=== PATIENT | female | born 1955 | race Caucasian/White ===

== ENCOUNTER 2020-02-09 12:28 | Emergency (ER) | payer OTHER, SELFPAY ==
[2020-02-09 12:38] VITALS: BP 149/84; PULSE 72; RESP 16; TEMP 36.7; O2SAT 97
--- NOTE | 2020-02-09 12:42 | ED.EAR ---
HPI - Ear Problem General Stated complaint: Abdominal Pain Time Seen by Provider: 02/09/20 12:35 Source: patient and RN notes reviewed Mode of arrival: ambulatory Limitations: no limitations History of Present Illness HPI Narrative: Patient presents today complaining of pain to the right ear since yesterday with intermittent spells of dizziness. These spells of dizziness only come on with pronounced movements of the head such as when doing a burpee in the gym and bending over. Denies drainage or decreased hearing. Denies congestion, rhinorrhea, postnasal drip, sore throat, cough, fever. Describes some discomfort at this time that she currently rates 3/10. She takes Claritin daily, but has tried no other [id number] medication for her symptoms. Related Data Allergies Allergy/AdvReac Type Severity Reaction Status Date / Time Sulfa (Sulfonamide Allergy Severe Verified 10/06/16 17:33 Antibiotics) iodine Allergy Mild HIVES Verified 10/06/16 17:33 metronidazole Allergy Unknown Verified 10/06/16 17:33 mold Allergy Unknown Verified 10/06/16 17:33 levofloxacin AdvReac Severe TENDON Verified 10/06/16 17:33 PAIN, DAMAGE prednisone AdvReac Mild HX OF Verified 10/06/16 17:33 CENTRAL RETINOPATHY ciprofloxacin AdvReac Unknown TENDON Verified 10/06/16 17:33 DAMAGE, PAIN Contrast Media Allergy Unknown HIVES Uncoded 10/06/16 17:33 METRONIDAZOLE HCL Allergy Unknown Uncoded 10/06/16 17:33 CIPROFLOXACIN HCL AdvReac Severe TENDON Uncoded 10/06/16 17:33 DAMAGE, PAIN Review of Systems Review of Systems: Narrative: CONSTITUTIONAL: Denies body aches, fever, chills, or sweats. EYES: Denies visual changes, redness, or discharge. ENT: Denies rhinorrhea, congestion, sore throat. + Right ear pain CARDIOVASCULAR: Denies chest pain, palpitations, or edema. RESPIRATORY: Denies cough or dyspnea. GASTROINTESTINAL: Denies abdominal pain, nausea, vomiting, or diarrhea. GENITOURINARY: Denies dysuria or hematuria. SKIN: Denies rash, itching, or wounds. MUSCULOSKELETAL: Denies back pain, joint pain, or myalgia. NEUROLOGIC: Denies headache, numbness, tingling, or weakness. PSYCH: Denies depression or anxiety. [facility] Past Medical History Medical History (Updated 02/09/20 @ 12:48 by Jennifer Dasilva, [facility], ) Anxiety Diabetes Hyperlipidemia Comments At time of signature, I have reviewed and agree with nursing past medical, surgical, social and family history unless otherwise noted. Please see nursing chart for further information. There is no relevant family history pertinent to the presenting complaint Exam Narrative: Exam Narrative: GENERAL: Well-appearing, well-nourished, and in no acute distress. HEAD: Normocephalic, atraumatic. EYES: EOMI. No redness or drainage. Conjunctivae normal. ENT: Mucous membranes pink and moist. Nares clear. No rhinorrhea. Bilateral middle ear effusions, right greater than left. TMs without erythema or injection. No movement tenderness of the external ears bilaterally. NECK: Normal AROM. Supple. No lymphadenopathy. CHEST: No respiratory distress. EXTREMITIES: Normal range of motion. No edema. SKIN: Warm, dry, no rash. Capillary refill normal. Normal skin turgor. NEURO: No focal deficits. Alert and oriented x3. Gait steady. PSYCH: Normal affect. No signs of depression or anxiety. Course Vital Signs Vital signs: Vital Signs Temperature 98.0 F 02/09/20 12:38 Pulse Rate 72 02/09/20 12:38 Respiratory Rate 16 02/09/20 12:38 Blood Pressure 149/84 H 02/09/20 12:38 Pulse Oximetry 97 02/09/20 12:38 Temperature 98.0 F 02/09/20 12:38 Pulse Rate 72 02/09/20 12:38 Respiratory Rate 16 02/09/20 12:38 Blood Pressure 149/84 H 02/09/20 12:38 Pulse Oximetry 97 02/09/20 12:38 Reviewed. Pt has been instructed to follow up with her PCP regarding her elevated blood pressure today. Medical Decision Making Differential Diagnosis Differe
--- NOTE | 2020-02-09 13:32 | ED.ABDPAIN ---
HPI - Abdominal Pain General Chief Complaint: Abdominal Pain Stated Complaint: Abdominal Pain Time Seen by Provider: 02/09/20 12:59 Source: patient and RN notes reviewed Mode of arrival: ambulatory Limitations: no limitations History of Present Illness HPI narrative: Patient presents today complaining of a 1 week history of lower abdominal pain and cramping, severe nausea, chills, fatigue. States, I feel like I am sitting on an apple. States she is also constipated for the past 3 days. Reports history of C. difficile, diverticulitis, rectocele. Reports that her stool is caught in her rectocele. She has been trying to dislodge it without success. She was seen at a hospital in [place] 1 week ago for not feeling well , diagnosed with pneumonia and placed on doxycycline, which she has been taking. States that she went and purchased an enema today, but read the instructions and it stated that she needed to consult a medical professional if she was over 55 or experiencing abdominal pain prior to using it. MD elicited complaint: abdominal pain Related Data Home Medications Medication Instructions Recorded Confirmed doxycycline monohydrate 100 mg PO DAILY 02/09/20 02/09/20 Allergies Allergy/AdvReac Type Severity Reaction Status Date / Time Sulfa (Sulfonamide Allergy Severe Hives Verified 02/09/20 12:51 Antibiotics) iodine Allergy Mild HIVES Verified 02/09/20 12:51 metronidazole Allergy Unknown Diarrhea Verified 02/09/20 12:51 mold Allergy Unknown Difficulty Verified 02/09/20 12:51 Breathing levofloxacin AdvReac Severe TENDON Verified 02/09/20 12:51 PAIN, DAMAGE prednisone AdvReac Mild HX OF Verified 02/09/20 12:51 CENTRAL RETINOPATHY ciprofloxacin AdvReac Unknown TENDON Verified 02/09/20 12:51 DAMAGE, PAIN Contrast Media Allergy Unknown HIVES Uncoded 02/09/20 12:51 METRONIDAZOLE HCL Allergy Unknown Hives Uncoded 02/09/20 12:51 CIPROFLOXACIN HCL AdvReac Severe TENDON Uncoded 02/09/20 12:51 DAMAGE, PAIN Review of Systems Review of Systems: Narrative: CONSTITUTIONAL: Denies body aches, fever, or sweats.+ Chills, fatigue EYES: Denies visual changes, redness, or discharge. ENT: Denies rhinorrhea, congestion, sore throat, or otalgia. CARDIOVASCULAR: Denies chest pain, palpitations, or edema. RESPIRATORY: Denies cough or dyspnea. GASTROINTESTINAL: Denies vomiting, or diarrhea.+ Abdominal pain, nausea, constipation GENITOURINARY: Denies dysuria or hematuria. SKIN: Denies rash, itching, or wounds. MUSCULOSKELETAL: Denies back pain, joint pain, or myalgia. NEUROLOGIC: Denies headache, numbness, tingling, or weakness. PSYCH: Denies depression or anxiety. [facility] Past Medical History Medical History (Updated 02/09/20 @ 13:37 by Jennifer Dasilva, [facility], ) Anxiety Diabetes Diverticulitis History of Clostridioides difficile colitis Hyperlipidemia Rectocele Comments At time of signature, I have reviewed and agree with nursing past medical, surgical, social and family history unless otherwise noted. Please see nursing chart for further information. There is no relevant family history pertinent to the presenting complaint Exam Narrative: Exam Narrative: GENERAL: Well-appearing, well-nourished, and in no acute distress. HEAD: Normocephalic, atraumatic. EYES: EOMI. No redness or drainage. Conjunctivae normal. ENT: Mucous membranes pink and moist. Nares clear. NECK: Normal AROM. Supple. No lymphadenopathy. CHEST: No respiratory distress. Clear to auscultation. HEART: Regular rate and rhythm. No murmur appreciated. Normal peripheral pulses. ABDOMEN: Soft, nondistended, normal active bowel sounds. + Tenderness to the lower abdomen MUSCULOSKELETAL: No bony tenderness. EXTREMITIES: Normal range of motion. No edema. SKIN: Warm, dry, no rash. Capillary refill normal. Normal skin turgor. NEURO: No focal deficits. Alert and oriented x3. Gait steady. PSYCH: Normal affect.
== END 2020-02-09 13:31 | disposition short-term general hospital (02) ==
PROVIDERS: Emergency Provider Nurse Practitioner
DX: R10.31 Right lower quadrant pain (principal); R10.32 Left lower quadrant pain; E78.5 Hyperlipidemia, unspecified; Z86.19 Personal history of other infectious and parasitic diseases; E11.9 Type 2 diabetes mellitus without complications
CPT/HCPCS: 99212; G0463

== ENCOUNTER 2022-03-13 13:19 | Emergency (ER) | payer OTHER, SELFPAY ==
--- NOTE | ~2022-03-13 | CT_ITS ---
EXAMINATION: CT abdomen pelvis wo con DATE: 03/13/2022 14:16 INDICATION: History of diverticulitis TECHNIQUE: Computed tomography (CT) of the abdomen and pelvis was performed without intravenous contr ast. The dose-length product was 1403.56 mGy-cm. Automated exposure control and iterative reconstruct ion technique were employed. COMPARISON: CT dated 07/24/2015. FINDINGS: Lung bases are unremarkable. Heart size is normal. No significant vascular abnormality. No lymphadenopathy. The spleen, pancreas, adrenal glands are unremarkable. Liver echotexture is normal without focal mass . Gallbladder is surgically absent. Small fat-containing umbilical hernia. There are changes of parti al left nephrectomy. There is a 11 mm hyperdense cyst of the left kidney laterally. There is a possib le additional 7 mm hyperdense cyst anteriorly. There are nonobstructing punctate 2 mm left renal ston es. There is a punctate nonobstructing right renal stone. There is a 1.5 cm exophytic right renal mas s laterally containing peripheral calcifications. This could represent a complicated cyst or solid ma ss. There is a 2.3 cm simple cyst of the right kidney. No ureteral stones or hydronephrosis. There ar e coarse calcifications of the left ovary unchanged, likely benign. Colonic diverticulosis without ev idence for diverticulitis. There is a 3 cm right ovarian cyst. Nonobstructive bowel pattern. No free air or free fluid. Small upper abdominal ventral hernia containing fat. Mild lumbar spondylosis. No f ocal lytic or blastic lesions. IMPRESSION: 1. No acute abdominal abnormality. No evidence for diverticulitis. 2: Right renal mass laterally measuring 1.5 cm which may represent a complicated cyst or renal cell c arcinoma. Recommend correlation with CT abdomen without and with contrast. Reviewed, dictated and finalized at location A. [employer] REPRESENTATIVE IMPRESSION: 1. No acute abdominal abnormality. No evidence for diverticulitis. 2: Right renal mass laterally measuring 1.5 cm which may represent a complicate d cyst or renal cell carcinoma. Recommend correlation with CT abdomen without a nd with contrast.
[2022-03-13 13:22] VITALS: BP 158/92; PULSE 63; RESP 16; TEMP 36.4; O2SAT 100
--- NOTE | 2022-03-13 13:47 | ED.ABDPAIN ---
HPI - Abdominal Pain General Chief Complaint: Abdominal Pain Stated Complaint: abd pain Time Seen by Provider: 03/13/22 13:47 Related Data Home Medications Medication Instructions Recorded Confirmed doxycycline monohydrate 100 mg 100 mg PO DAILY 02/09/20 02/09/20 tablet Allergies Allergy/AdvReac Type Severity Reaction Status Date / Time Sulfa (Sulfonamide Allergy Severe Hives Verified 03/13/22 14:59 Antibiotics) iodine Allergy Mild HIVES Verified 03/13/22 14:59 metronidazole Allergy Unknown Diarrhea, Verified 03/13/22 14:59 Hives mold Allergy Unknown Difficulty Verified 03/13/22 14:59 Breathing levofloxacin AdvReac Severe TENDON Verified 03/13/22 14:59 PAIN, DAMAGE prednisone AdvReac Mild HX OF Verified 03/13/22 14:59 CENTRAL RETINOPATHY ciprofloxacin AdvReac Unknown TENDON Verified 03/13/22 14:59 DAMAGE, PAIN Contrast Media Allergy Unknown HIVES Uncoded 03/13/22 14:59 PMFSH Past Medical History Medical History (Updated 03/13/22 @ 15:27 by Beth Sifuentes MD) Anxiety Diabetes Diverticulitis History of Clostridioides difficile colitis Hyperlipidemia Rectocele Course Course Emergency Course: Work-up today showed no significant finding to explain patient condition. IBS is my concern. Patient agreed with the result. Patient was notified about the 1.5 cm right renal mass and was advised to follow-up with her family physician within 7 days for further evaluation. She understood. And agreed. I did give her a copy of the CAT scan report as a reminder Vital Signs Vital signs: Vital Signs Temperature 36.4 C 03/13/22 13:22 Pulse Rate 63 03/13/22 13:22 Respiratory Rate 16 03/13/22 13:22 Blood Pressure 158/92 H 03/13/22 13:22 Pulse Oximetry 100 03/13/22 13:22 Oxygen Delivery Room Air 03/13/22 13:22 Temperature 36.4 C 03/13/22 13:22 Pulse Rate 63 03/13/22 13:22 Respiratory Rate 16 03/13/22 13:22 Blood Pressure 158/92 H 03/13/22 13:22 Pulse Oximetry 100 03/13/22 13:22 Oxygen Delivery Room Air 03/13/22 13:22 MDM - Abdominal Pain Imaging Data Radiologist's impression: Impressions Abdomen/Pelvis CT 03/13/22 14:19 IMPRESSION: 1. No acute abdominal abnormality. No evidence for diverticulitis. 2: Right renal mass laterally measuring 1.5 cm which may represent a complicated cyst or renal cell carcinoma. Recommend correlation with CT abdomen without and with contrast. Discharge Plan Discharge Clinical Impression: Abdominal pain, History of IBS, Kidney mass Patient Disposition: Home, Self-Care Condition: Stable Instructions: Irritable Bowel Syndrome (DC), Abdominal Pain (ED) Additional Instructions: Return if symptoms are worsening , call your family physician for appointment, take Tylenol as as needed for aches and pain, continue home medications. CAT scan of the abdomen and pelvis today showed that she have a 1.5 cm mass versus cyst on the right kidney which could be malignant. Please contact your family physician within 7 days for further evaluation. A copy of the CAT scan report is attached to your discharge paper. Prescriptions: New dicyclomine 20 mg tablet 20 mg PO QID Qty: 20 0RF No Action doxycycline monohydrate 100 mg tablet 100 mg PO DAILY Follow-up/Referrals: PHYSICIAN NOT ON STAFF,NONSTAFF [Primary Care Provider] - Bryon Mello MD [Physician] -
[2022-03-13 13:55] VITALS: BP 138/85; PULSE 66; RESP 18; O2SAT 100
[2022-03-13 13:57] LABS: Basophils Absolute Auto 0.1 K/mm3 (0.0-0.1); Basophils Percent Auto 0.8 % (0.2-1.2); Eosinophils Absolute Auto 0.2 K/mm3 (0-0.3); Eosinophils Percent Auto 3.5 % (0-4.4); Hematocrit 40.5 % (37.0-47.0); Hemoglobin 13.3 g/dL (12.0-15.0); Immature Granulocyte Absolute 0.01 K/mm3 (0.00-0.031); Immature Granulocyte Percent A 0.2 % (0-0.5); Lymphocytes Absolute Auto 1.58 K/mm3 (0.9-3.2); Lymphocytes Percent Auto 25.1 % (18.3-44.2); Mean Corpuscular HGB Conc 32.8 g/dl (32-36); Mean Corpuscular Hemoglobin 28.5 pg (26-34); Mean Corpuscular Volume 86.7 fl (80-100); Mean Platelet Volume 9.4 fl (7.4-10.4); Monocytes Absolute Auto 0.5 K/mm3 (0.1-0.6); Monocytes Percent Auto 7.5 % (2.6-8.5); Neutrophils Percent Auto 62.9 % (45.5-73.1); Platelet Count Result 186 k/mm3 (150-375); Red Blood Count 4.67 M/mm3 (4.2-5.4); Red Cell Distribution Width 12.6 % (11.5-14.5); White Blood Count 6.3 K/mm3 (4.5-10.0)
[2022-03-13 14:11] LABS: Alanine Aminotransferase 27 U/L (6-35); Albumin Level 4.1 g/dL (3.5-5.1); Alkaline Phosphatase 70 U/L (38-126); Anion Gap 8 mmol/L (8-16); Aspartate Amino Transferase 29 U/L (14-36); Blood Urea Nitrogen 14 mg/dL (7-17); Calcium 9.3 mg/dL (8.4-10.2); Carbon Dioxide 27 mmol/L (22-30); Chloride 105 mmol/L (98-107); Estimated CRCL calculation 85 ml/min; Estimated Glomerular Filt Rate > 60; Glucose 94 mg/dL (65-110); Lipase 43 U/L (23-300); Sodium 140 mmol/L (137-145)
[2022-03-13 14:15] VITALS: BP 141/70; PULSE 67; RESP 18; O2SAT 100
[2022-03-13] MEDS: SODIUM CHLORIDE 0.9% IV 1,000 ML 999 ML IV CONT (14:29)
[2022-03-13 14:54] LABS: Appearance Urine Clear (Clear); Bilirubin Urine Negative (Negative); Blood Urine 1+ (Negative); Color Urine Yellow (Yellow); Glucose Urine UA Negative (Negative); Ketones Urine Trace mg/dL (Negative); Leukocyte Esterase Ur Negative LEU/UL (Negative); Nitrate Urine Negative (Negative); Protein Urine Negative (Negative); Urobilinogen Urine 0.2 mg/dL (<2.0); pH Urine 5.5 (5.0-9.0)
[2022-03-13 14:58] LABS: Bacteria Urine Trace /hpf; Mucus Urine Rare /lpf; RBC Urine 0-2 /hpf (0-2); Squamous Epithelial Cell Urine Rare /hpf (Few); WBC Urine 0-3 /hpf
[2022-03-13 15:12] LABS: Add Urine Microscopic? YES
[2022-03-13 15:50] VITALS: PULSE 60; RESP 18; O2SAT 100
== END 2022-03-13 15:51 | disposition home or self-care (01) ==
PROVIDERS: Emergency Provider Emergency Medicine
DX: R10.9 Unspecified abdominal pain (principal); K58.9 Irritable bowel syndrome, unspecified; N28.89 Other specified disorders of kidney and ureter; E11.9 Type 2 diabetes mellitus without complications; E78.5 Hyperlipidemia, unspecified
CPT/HCPCS: 36415; 74176; 80053; 81001; 83690; 85025; 96360; 99284; J7030

== ENCOUNTER 2022-08-25 18:39 | Emergency (ER) | payer OTHER, SELFPAY ==
--- NOTE | 2022-08-25 18:40 | ED.URI ---
HPI - URI/Sore Throat General Chief Complaint: Upper Respiratory Infection Stated Complaint: Sore Throat Time Seen by Provider: 08/25/22 18:40 Source: patient Mode of arrival: ambulatory Limitations: no limitations History of Present Illness HPI Narrative: Ms. Pimentel is a 66-year-old female patient presenting to the clinic today with complaints of a sore throat off and on for a couple months. She reports that she developed new onset of sore throat yesterday. Has a white lesion that popped up in the left side back of her throat and states that she feels as though she has left-sided submandibular lymph node swelling. Her daughter and granddaughter both live with her and they both were positive for strep MD elicited complaint: sore throat Related Data Home Medications Medication Instructions Recorded Confirmed clopidogrel 75 mg tablet mg 08/25/22 diltiazem HCl 120 mg mg PO 08/25/22 capsule,extended release 24 hr, controlled (DILT-XR) esomeprazole magnesium 40 mg mg 08/25/22 capsule,delayed release Allergies Allergy/AdvReac Type Severity Reaction Status Date / Time Sulfa (Sulfonamide Allergy Severe Hives Verified 08/25/22 18:49 Antibiotics) iodine Allergy Mild HIVES Verified 08/25/22 18:49 metronidazole Allergy Unknown Diarrhea, Verified 08/25/22 18:49 Hives mold Allergy Unknown Difficulty Verified 08/25/22 18:49 Breathing levofloxacin AdvReac Severe TENDON Verified 08/25/22 18:49 PAIN, DAMAGE prednisone AdvReac Mild HX OF Verified 08/25/22 18:49 CENTRAL RETINOPATHY ciprofloxacin AdvReac Unknown TENDON Verified 08/25/22 18:49 DAMAGE, PAIN Contrast Media Allergy Unknown HIVES Uncoded 08/25/22 18:49 Review of Systems Review of Systems: Pertinent positives per HPI. Patient denies any fever, chills, rash, headache, visual changes, dizziness, cough, shortness of breath, chest pain, palpitations, nausea, vomiting, diarrhea, constipation, abdominal pain, or any urinary issues. [facility] Past Medical History Medical History Anxiety Diabetes Diverticulitis History of Clostridioides difficile colitis Hyperlipidemia Rectocele Comments At the time of my signature, I reviewed and agree with the nursing past medical, surgical, social, and family history. There is no relevant family history pertinent to the patient complaint. Exam Narrative: General: Well-developed, well nourished, in no apparent distress Head: Normocephalic, atraumatic Eyes: Pupils equally round and reactive to light bilaterally, EOM intact, sclera and conjunctive clear, no discharge, lids normal Ears: TMs intact and clear, ear canals clear, no drainage, grossly hearing normal. Nose: Nares patent, no discharge, no inflammation, no sinus tenderness. Mouth: Oral pharynx mildly red with white plaque-like lesion lesions to the left posterior pharynx, no masses, good dentition, MMM. Tonsils surgically absent Neck: Supple, trachea midline, no enlargement of anterior or posterior cervical nodes, no thyroid masses or goiter palpable. Cardio: Regular rate and rhythm, s1 and s2 normal, no murmur appreciated. Resp: Clear to auscultation bilaterally, no rhonchi, rales, wheezing or rubs Course Course Emergency Course: Portions of this record may have been created with voice recognition software. Level of Care: Express Care Visit Vital Signs Vital signs: Vital signs reviewed MDM - URI/Sore Throat MDM Narrative Medical decision making narrative: At the time of visit patient is resting comfortably on the exam table. Strep screen was obtained Differential Diagnosis Differential diagnosis: Likely upper respiratory infection, otitis media, sinusitis, viral infection, bronchitis, influenza, pharyngitis and other (COVID) Discharge Plan Discharge Clinical Impression: Lesion of oral mucosa Pharyngitis Qualifiers: Pharyngitis/t
[2022-08-25 18:46] VITALS: BP 155/84; PULSE 71; RESP 16; TEMP 37.1; O2SAT 100
== END 2022-08-25 19:11 | disposition home or self-care (01) ==
PROVIDERS: Emergency Provider Nurse Practitioner Family; PCP Family Medicine
DX: J02.9 Acute pharyngitis, unspecified (principal); K13.70 Unspecified lesions of oral mucosa; E11.9 Type 2 diabetes mellitus without complications; E78.5 Hyperlipidemia, unspecified; Z86.19 Personal history of other infectious and parasitic diseases
CPT/HCPCS: 87081; 87880; 99213; G0463

== ENCOUNTER 2022-09-20 14:56 | Outpatient (CLI) | payer OTHER, SELFPAY ==
--- NOTE | ~2022-09-20 | CT_ITS ---
EXAMINATION: CT soft tissue neck wo con DATE: 09/20/2022 15:27 INDICATION: Localized enlarged lymph nodes. Left tongue and left-sided throat soreness. TECHNIQUE: Computed tomography (CT) of the neck was performed without intravenous contrast. Automated exposure control and iterative reconstruction technique were employed. The dose-length product was 4 77.19 mGy-cm. COMPARISON: None FINDINGS: There is a coarse calcification in left thyroid lobe. There are no pathologically enlarged lymph nodes. The major salivary glands are normal. The pharynx and larynx are normal. No abscess. The re is severe cervical spondylosis. There is mild mucosal thickening in the paranasal sinuses. There i s a carious lesion of tooth 15. IMPRESSION: 1. No lymphadenopathy. 2. Carious lesion of tooth 15. Reviewed, dictated and finalized at location A.
== END 2022-09-20 14:57 | disposition home or self-care (01) ==
PROVIDERS: PCP Family Medicine; Visit Provider Otolaryngology
DX: K11.20 Sialoadenitis, unspecified (principal); R59.0 Localized enlarged lymph nodes; K02.9 Dental caries, unspecified
CPT/HCPCS: 70490

== ENCOUNTER 2022-11-10 12:59 | Outpatient (CLI) | payer MEDICARE, MEDICAID, SELFPAY ==
--- NOTE | ~2022-11-10 | US_ITS ---
EXAMINATION: US FNA w image guidance DATE: 11/10/2022 14:26 INDICATION: Left thyroid mass TECHNIQUE: A time-out was performed to verify the patient's name, date of , and procedure to be performed . The procedure and its benefits and risks were discussed with the patient. Risks specifically discus sed included bleeding and infection. The patient understood the risks and agreed to proceed. The neck was prepped and draped in the usual sterile manner. 3 mL 1% lidocaine was used for local anesthesia . 6 passes were made with a 25G needle into the lesion. Appropriate needle location was documented with continuous sonographic guidance. A sterile bandage was applied. There were no immediate compli cations. FINDINGS: Grayscale ultrasound images demonstrate biopsy needles advanced into a 1.8 cm solid isoechoic nodule in the left thyroid. IMPRESSION: 1. Successful ultrasound-guided fine needle aspiration of a 1.8 cm solid left thyroid nodule. Reviewed, dictated and finalized at location A.
== END 2022-11-10 13:00 | disposition home or self-care (01) ==
PROVIDERS: PCP Family Medicine; Visit Provider Otolaryngology
DX: E07.9 Disorder of thyroid, unspecified (principal); E04.1 Nontoxic single thyroid nodule; J31.0 Chronic rhinitis; J32.9 Chronic sinusitis, unspecified
CPT/HCPCS: 10005; 88173; 88305

== ENCOUNTER 2022-12-27 14:50 | Emergency (ER) | payer MEDICARE, MEDICAID, SELFPAY ==
--- NOTE | ~2022-12-27 | CT_ITS ---
EXAMINATION: CT abdomen pelvis wo con DATE: 12/27/2022 16:51 INDICATION: Epigastric abdominal pain. TECHNIQUE: Computed tomography (CT) of the abdomen and pelvis was performed without intravenous contr ast. Automated exposure control and iterative reconstruction technique were employed. The dose-length product was 1447.95 mGy-cm. COMPARISON: CT abdomen and pelvis 03/13/2022, abdomen MRI 08/26/10 FINDINGS: The visualized portions of the lung bases demonstrate mild atelectasis. No pleural effusion . The heart size is normal. There are coronary artery calcifications. No pericardial effusion. The li deena is normal. There are changes of cholecystectomy. The spleen, pancreas, and adrenal glands are nor mal. There are approximately five 1 mm stones in right kidney. There are cysts in the kidneys measuri ng up to 2.2 cm on the right. There are cortical calcifications in the kidneys. There is a 15 mm hype rdense mass in left kidney. There are hemorrhagic cysts in left kidney measuring up to 12 mm. There a re approximately 3 stones in left kidney measuring up to 3 mm. There is diverticulosis of the colon w ithout evidence of diverticulitis. The appendix is normal. There is a stable 3.3 cm cyst in right ova ry, likely benign. There is a supraumbilical ventral hernia containing fat. There are no pathological ly enlarged lymph nodes. There is no free intraperitoneal fluid. There is severe thoracic and lumbar spondylosis. IMPRESSION: 1. Supraumbilical ventral hernia containing fat. 2. Stable 3.3 cm cyst in right ovary, likely benign. Pelvis ultrasound is recommended in one year. 3. 15 mm hyperdense mass in left kidney. This finding may be hemorrhagic cysts or less likely neoplas m. Abdomen CT or MRI without and with contrast is recommended. Reviewed, dictated and finalized at location E. IMPRESSION: 1. Supraumbilical ventral hernia containing fat. 2. Stable 3.3 cm cyst in right ovary, likely benign. Pelvis ultrasound is recom mended in one year. 3. 15 mm hyperdense mass in left kidney. This finding may be hemorrhagic cysts or less likely neoplasm. Abdomen CT or MRI without and with contrast is recomme nded.
[2022-12-27 14:56] VITALS: BP 149/74; PULSE 72; RESP 18; TEMP 37.1; O2SAT 96
[2022-12-27 15:13] LABS: Basophils Absolute Auto 0.1 K/mm3 (0.0-0.1); Basophils Percent Auto 0.9 % (0.2-1.2); Eosinophils Absolute Auto 0.2 K/mm3 (0-0.3); Eosinophils Percent Auto 2.6 % (0-4.4); Hematocrit 40.1 % (37.0-47.0); Hemoglobin 13.1 g/dL (12.0-15.0); Immature Granulocyte Absolute 0.01 K/mm3 (0.00-0.031); Immature Granulocyte Percent A 0.2 % (0-0.5); Lymphocytes Absolute Auto 1.47 K/mm3 (0.9-3.2); Lymphocytes Percent Auto 22.8 % (18.3-44.2); Mean Corpuscular HGB Conc 32.7 g/dl (32-36); Mean Corpuscular Hemoglobin 27.9 pg (26-34); Mean Corpuscular Volume 85.3 fl (80-100); Mean Platelet Volume 9.5 fl (7.4-10.4); Monocytes Absolute Auto 0.4 K/mm3 (0.1-0.6); Monocytes Percent Auto 6.4 % (2.6-8.5); Neutrophils Absolute Auto 4.3 K/mm3 (1.3-6.7); Neutrophils Percent Auto 67.1 % (45.5-73.1); Platelet Count Result 164 k/mm3 (150-375); Red Cell Distribution Width 12.7 % (11.5-14.5); White Blood Count 6.5 K/mm3 (4.5-10.0)
[2022-12-27 15:24] LABS: Alanine Aminotransferase 20 U/L (6-35); Albumin Level 3.9 g/dL (3.5-5.1); Alkaline Phosphatase 60 U/L (38-126); Anion Gap 10 mmol/L (8-16); Aspartate Amino Transferase 25 U/L (14-36); Bilirubin,Total 0.8 mg/dL (0.2-1.3); Blood Urea Nitrogen 15 mg/dL (7-17); Calcium 8.5 mg/dL (8.4-10.2); Carbon Dioxide 24 mmol/L (22-30); Chloride 105 mmol/L (98-107); Estimated CRCL calculation 73 ml/min; Estimated Glomerular Filt Rate > 60; Glucose 116 mg/dL (65-110); Lipase 40 U/L (23-300); Potassium 3.5 mmol/L (3.4-5.0); Sodium 139 mmol/L (137-145)
[2022-12-27 16:08] VITALS: BP 152/72; PULSE 72; RESP 16; TEMP 36.4; O2SAT 100
[2022-12-27] MEDS: SODIUM CHLORIDE 0.9% IV 1,000 ML 999 ML IV CONT (16:31)
[2022-12-27] MEDS: MORPHINE SULFATE (*CRX) 4 MG/ML INJ 2 MG IV PUSH (16:32)
[2022-12-27] MEDS: ONDANSETRON INJ 4 MG/2 ML VIAL IV PUSH (16:33)
[2022-12-27 16:46] LABS: Appearance Urine Cloudy (Clear); Bacteria Urine 4+ /hpf; Bilirubin Urine Negative (Negative); Color Urine Yellow (Yellow); Glucose Urine UA Negative (Negative); Ketones Urine Trace mg/dL (Negative); Leukocyte Esterase Ur 3+ LEU/UL (Negative); Nitrate Urine Negative (Negative); Non Pathogenic Casts 0-2; Protein Urine Negative (Negative); RBC Urine 0-2 /hpf (0-2); Specific Grav Ur 1.016 (1.001-1.035); Squamous Epithelial Cell Urine Occasional /hpf (Few); WBC Urine >100 /hpf; pH Urine 5.5 (5.0-9.0)
[2022-12-27 16:56] VITALS: BP 161/78; PULSE 62; RESP 18; O2SAT 98
[2022-12-27 17:15] LABS: Add Urine Microscopic? YES
[2022-12-27] MEDS: FAMOTIDINE 20 MG/2 ML VIAL IV PUSH (18:23)
[2022-12-27] MEDS: BELLADONNA ALK/PHENOB ELIX 10 ML, MAG HYDROX/ALUMINUM HYD/SIMETH 30 ML, LIDOCAINE HCL 2... PO (18:24)
[2022-12-27 18:29] VITALS: BP 158/79; PULSE 61; RESP 14; O2SAT 98
--- NOTE | 2022-12-27 18:34 | ED.ABDPAIN ---
HPI - Abdominal Pain General Chief Complaint: Abdominal Pain Stated Complaint: ABD pain Time Seen by Provider: 12/27/22 15:52 History of Present Illness HPI narrative: This is a 67-year-old female, with past history of hypertension and GERD, who presents emergency department complaining of epigastric abdominal pain. The patient states 2 weeks ago, she had abdominal flank pain, associated with dysuria. She was found to have a urinary tract infection. She was treated with antibiotics, resulting in loose stools without blood. This gradually improved, though in the past 2 days, she developed constipation and epigastric abdominal pain, described as burning and rated 4-5/10. Related Data Home Medications Medication Instructions Recorded Confirmed diltiazem HCl 120 mg mg PO 08/25/22 capsule,extended release 24 hr, controlled (DILT-XR) esomeprazole magnesium 40 mg mg 08/25/22 capsule,delayed release clopidogrel 75 mg tablet 75 mg PO DAILY 10/05/22 fexofenadine 180 mg tablet 180 mg PO DAILY 11/16/22 (Sofy Fontenot) Allergies Allergy/AdvReac Type Severity Reaction Status Date / Time amlodipine Allergy Severe Swelling Verified 12/27/22 16:04 of Lip/Tongue/Throat cefdinir Allergy Severe Hives Verified 12/27/22 16:04 metronidazole, micronized Allergy Severe hives Verified 12/27/22 16:04 [id number] Reductase Allergy Severe muscle pain Verified 12/27/22 16:04 Inhibitor Sulfa (Sulfonamide Allergy Severe Hives Verified 12/27/22 16:04 Antibiotics) iodine Allergy Mild HIVES Verified 12/27/22 16:04 metronidazole Allergy Unknown Diarrhea, Verified 12/27/22 16:04 Hives mold Allergy Unknown Difficulty Verified 12/27/22 16:04 Breathing levofloxacin AdvReac Severe TENDON Verified 12/27/22 16:04 PAIN, DAMAGE prednisone AdvReac Mild HX OF Verified 12/27/22 16:04 CENTRAL RETINOPATHY ciprofloxacin AdvReac Unknown TENDON Verified 12/27/22 16:04 DAMAGE, PAIN Contrast Media Allergy Unknown HIVES Uncoded 11/16/22 11:02 Review of Systems Review of Systems: CONSTITUTIONAL: Denies fever, chills, or sweats. CARDIOVASCULAR: Denies chest pain, palpitations, or edema. RESPIRATORY: Denies cough or dyspnea. GASTROINTESTINAL: Epigastric abdominal pain, constipation denies nausea, vomiting, or diarrhea. GENITOURINARY: Dysuria denies hematuria. SKIN: Denies rash or itching. MUSCULOSKELETAL: Denies back pain, joint pain, or myalgia. NEUROLOGIC: Denies headache, numbness, dizziness, or weakness. PSYCHIATRIC: Denies anxiety or depression. [facility] Past Medical History Medical History Anxiety Diabetes Diverticulitis History of Clostridioides difficile colitis Hyperlipidemia Rectocele Family History Family History Grandparent Cancer Hypertension Heart disease Cerebrovascular accident Mother Hypertension Heart disease Social History Social History Smoking status: Never smoker Alcohol intake: never Lack of Transportation: No Lack of Food: Never True Current Housing: I Have Housing Concerned About Future Housing: No Difficulty Paying Gas/Electric Bills: Decline to Answer Difficulty Paying for Meds: Decline to Answer Currently Unemployed: No Education: Trade/Vocational Certificate Difficulty w/ Childcare or Family Care: No Exam Narrative: GENERAL: Well-developed, well-nourished, and in no acute distress. HEAD: Normocephalic, atraumatic. EYES: PERRLA and EOMI. ENT: Nares clear, no rhinorrhea or epistaxis. Mucous membranes moist. Oropharynx without tonsillar hypertrophy exudate or other lesions. CHEST: Clear to auscultation. No respiratory distress. No wheezes rales or rhonchi HEART: Regular rate and rhythm. No murmur heard. Normal peripheral pulses. ABDOMEN: Sof
[2022-12-27 19:12] VITALS: BP 153/71; PULSE 60; RESP 14; O2SAT 100
== END 2022-12-27 19:14 | disposition home or self-care (01) ==
PROVIDERS: Emergency Medicine; Emergency Provider Preventive Medicine Aerospace Medicine; PCP Family Medicine
DX: N39.0 Urinary tract infection, site not specified (principal); K29.00 Acute gastritis without bleeding; E11.9 Type 2 diabetes mellitus without complications; E78.5 Hyperlipidemia, unspecified
CPT/HCPCS: 36415; 74176; 80053; 81001; 83690; 85025; 87077; 87086; 87186; 96361; 96374; 96375; 99284; A9270; J2270; J2405; J7030

== ENCOUNTER 2023-04-08 21:21 | Emergency (ER) | payer MEDICARE, OTHER, SELFPAY ==
--- NOTE | ~2023-04-08 | CT_ITS ---
EXAMINATION: CT abdomen pelvis wo con DATE: 04/09/2023 00:59 INDICATION: Left lower quadrant abdominal pain. TECHNIQUE: Computed tomography (CT) of the abdomen and pelvis was performed without intravenous contr ast. Automated exposure control and iterative reconstruction technique were employed. The dose-length product was 604.04 mGy-cm. COMPARISON: CT abdomen and pelvis 12/27/2022 FINDINGS: The visualized portions of the lung bases demonstrate mild atelectasis. No pleural effusion . The heart size is normal. No pericardial effusion. There is a small sliding hiatal hernia. The live r is normal. There are changes of cholecystectomy. The spleen, pancreas, and adrenal glands are faith l. There are cysts in right kidney measuring up to 18 mm. There is a 2 mm stone in right kidney. Ther e are hemorrhagic cysts in left kidney measuring up to 1.4 cm. There is a 15 mm hyperdense mass in le ft kidney. There are 3 stones in left kidney measuring up to 3 mm. There are scattered diverticula in the colon. There is fat stranding around a diverticulum of descending colon, consistent with diverti culitis. There are no dilated loops of bowel. The appendix is normal. Aortic atherosclerosis is noted . There are no pathologically enlarged lymph nodes. There is no free intraperitoneal fluid. There is a 3.0 cm cyst in right ovary. There is moderate thoracic spondylosis. There is severe lower lumbar sp ondylosis. There is mild chronic anterior wedging of T8 vertebral body. IMPRESSION: 1. Diverticulitis of descending colon. 2. Stable 3.0 cm cyst in right ovary, likely benign. Pelvis ultrasound is recommended in one year. 3. Stable 13 mm hyperdense mass in left kidney. This finding may be a hemorrhagic cyst or less likely a neoplasm. Abdomen CT or MRI without and with contrast is recommended. Reviewed, dictated and finalized at location A. INIST CLASS B IMPRESSION: 1. Diverticulitis of descending colon. 2. Stable 3.0 cm cyst in right ovary, likely benign. Pelvis ultrasound is recom mended in one year. 3. Stable 13 mm hyperdense mass in left kidney. This finding may be a hemorrhag ic cyst or less likely a neoplasm. Abdomen CT or MRI without and with contrast is recommended.
[2023-04-08 21:37] VITALS: BP 152/85; PULSE 93; RESP 18; TEMP 37.7; O2SAT 97
[2023-04-09] VITALS (11 sets, daily range): BP systolic 139–160; BP diastolic 66–105; PULSE 75–81; RESP 15–21; O2SAT 95–100
[2023-04-09 01:06] LABS: Basophils Absolute Auto 0.1 K/mm3 (0.0-0.1); Basophils Percent Auto 0.7 % (0.2-1.2); Eosinophils Absolute Auto 0.2 K/mm3 (0-0.3); Eosinophils Percent Auto 1.8 % (0-4.4); Hematocrit 41.2 % (37.0-47.0); Hemoglobin 13.2 g/dL (12.0-15.0); Immature Granulocyte Absolute 0.01 K/mm3 (0.00-0.031); Immature Granulocyte Percent A 0.1 % (0-0.5); Lymphocytes Absolute Auto 1.95 K/mm3 (0.9-3.2); Lymphocytes Percent Auto 20.2 % (18.3-44.2); Mean Corpuscular Hemoglobin 27.7 pg (26-34); Mean Corpuscular Volume 86.4 fl (80-100); Mean Platelet Volume 9.8 fl (7.4-10.4); Monocytes Absolute Auto 0.7 K/mm3 (0.1-0.6); Monocytes Percent Auto 6.9 % (2.6-8.5); Neutrophils Absolute Auto 6.8 K/mm3 (1.3-6.7); Neutrophils Percent Auto 70.3 % (45.5-73.1); Platelet Count Result 204 k/mm3 (150-375); Red Blood Count 4.77 M/mm3 (4.2-5.4); White Blood Count 9.7 K/mm3 (4.5-10.0)
[2023-04-09 01:16] LABS: Appearance Urine Clear (Clear); Bilirubin Urine Negative (Negative); Blood Urine Negative (Negative); Color Urine Yellow (Yellow); Glucose Urine UA Negative (Negative); Ketones Urine Negative (Negative); Leukocyte Esterase Ur Negative LEU/UL (Negative); Nitrate Urine Negative (Negative); Protein Urine Negative (Negative); Specific Grav Ur 1.016 (1.001-1.035)
[2023-04-09 01:20] LABS: Alanine Aminotransferase 15 U/L (6-35); Albumin Level 4.1 g/dL (3.5-5.1); Alkaline Phosphatase 77 U/L (38-126); Anion Gap 7 mmol/L (8-16); Aspartate Amino Transferase 23 U/L (14-36); Bilirubin,Total 0.8 mg/dL (0.2-1.3); Blood Urea Nitrogen 13 mg/dL (7-17); Calcium 9.2 mg/dL (8.4-10.2); Carbon Dioxide 28 mmol/L (22-30); Chloride 104 mmol/L (98-107); Estimated CRCL calculation 82 ml/min; Estimated Glomerular Filt Rate > 60; Glucose 93 mg/dL (65-110); Lipase 58 U/L (23-300); Potassium 3.5 mmol/L (3.4-5.0); Sodium 139 mmol/L (137-145)
[2023-04-09] MEDS: SODIUM CHLORIDE 0.9% IV 1,000 ML 999 ML IV CONT (01:21)
[2023-04-09] MEDS: ONDANSETRON INJ 4 MG/2 ML VIAL IV PUSH (01:22)
[2023-04-09] MEDS: DICYCLOMINE HCL INJ 20 MG/2 ML VIAL IM (01:24)
--- NOTE | 2023-04-09 01:38 | ED.GENADULT ---
HPI - General Adult General Chief complaint: Abdominal Pain Stated complaint: LUQ pain Time Seen by Provider: 04/09/23 00:36 History of Present Illness HPI narrative: Patient is a 67-year-old female who presents to emergency department with chief complaint of abdominal pain. Patient reports that around [place] she had some discomfort in her abdomen that resolved patient reports last evening started having pain in the left side of her abdomen reports that she had a fever at home and reports that she has some chills. The patient had no diarrhea reports that her urine looked a little cloudy. The patient states she has a bloated sensation in her head patient reports that she has prior history of kidney stones and also prior history of diverticulitis. Related Data Home Medications Medication Instructions Recorded Confirmed diltiazem HCl 120 mg mg PO 08/25/22 capsule,extended release 24 hr, controlled (DILT-XR) esomeprazole magnesium 40 mg mg 08/25/22 capsule,delayed release clopidogrel 75 mg tablet 75 mg PO DAILY 10/05/22 fexofenadine 180 mg tablet 180 mg PO DAILY 11/16/22 (Sofy Hives) Allergies Allergy/AdvReac Type Severity Reaction Status Date / Time amlodipine Allergy Severe Swelling Verified 04/08/23 21:22 of Lip/Tongue/Throat cefdinir Allergy Severe Hives Verified 04/08/23 21:22 metronidazole, micronized Allergy Severe hives Verified 04/08/23 21:22 [id number] Reductase Allergy Severe muscle pain Verified 04/08/23 21:22 Inhibitor Sulfa (Sulfonamide Allergy Severe Hives Verified 04/08/23 21:22 Antibiotics) iodine Allergy Mild HIVES Verified 04/08/23 21:22 metronidazole Allergy Unknown Diarrhea, Verified 04/08/23 21:22 Hives mold Allergy Unknown Difficulty Verified 04/08/23 21:22 Breathing levofloxacin AdvReac Severe TENDON Verified 04/08/23 21:22 PAIN, DAMAGE prednisone AdvReac Mild HX OF Verified 04/08/23 21:22 CENTRAL RETINOPATHY ciprofloxacin AdvReac Unknown TENDON Verified 04/08/23 21:22 DAMAGE, PAIN Contrast Media Allergy Unknown HIVES Uncoded 04/08/23 21:22 Review of Systems Review of Systems: A 10 system review of systems was completed on the patient and is negative except for what is stated in the HPI. Nursing and ancillary documentation was reviewed. [facility] Past Medical History Medical History Anxiety Diabetes Diverticulitis History of Clostridioides difficile colitis Hyperlipidemia Rectocele Family History Family History Grandparent Cancer Hypertension Heart disease Cerebrovascular accident Mother Hypertension Heart disease Social History Social History Smoking status: Never smoker Alcohol intake: never Lack of Transportation: No Lack of Food: Never True Current Housing: I Have Housing Concerned About Future Housing: No Difficulty Paying Gas/Electric Bills: Decline to Answer Difficulty Paying for Meds: Decline to Answer Currently Unemployed: No Education: Trade/Vocational Certificate Difficulty w/ Childcare or Family Care: No Exam Narrative: GENERAL: Well-appearing, well-nourished, and in no acute distress. HEAD: Normocephalic, atraumatic. EYES: PERRLA and EOMI. ENT: Nares clear, no rhinorrhea or epistaxis. Mucous membranes moist. NECK: Supple. CHEST: Clear to auscultation. No respiratory distress. HEART: Regular rate and rhythm. No murmur heard. Normal peripheral pulses. ABDOMEN: Soft, tenderness to palpation left lower quadrant, nondistended, normal active bowel sounds. EXTREMITIES: Normal range of motion. No edema. SKIN: Warm, dry, no rash. NEURO: No focal deficits. Alert and oriented x3. PSYCH: Normal mood and affect. Course Vital Signs Vital signs: Vital Signs
[2023-04-09 02:01] LABS: Add Urine Microscopic? NO
[2023-04-09] MEDS: ACETAMINOPHEN 500 MG TABLET 1000 MG PO (05:42)
[2023-04-09] MEDS: AMOXICILLIN/CLAVULANATE K 875-125 MG TAB 1 TABLET PO (05:50)
== END 2023-04-09 05:54 | disposition home or self-care (01) ==
PROVIDERS: Emergency Provider Emergency Medicine; PCP Family Medicine
DX: K57.32 Diverticulitis of large intestine without perforation or abscess without bleeding (principal); E11.9 Type 2 diabetes mellitus without complications; E78.5 Hyperlipidemia, unspecified; N83.201 Unspecified ovarian cyst, right side; N28.89 Other specified disorders of kidney and ureter
CPT/HCPCS: 36415; 74176; 80053; 81003; 83690; 85025; 96361; 96372; 96374; 99284; A9270; J0500; J2405; J7030

== ENCOUNTER 2023-04-20 11:46 | Emergency (ER) | payer MEDICARE, OTHER, SELFPAY ==
--- NOTE | ~2023-04-20 | XR_ITS ---
EXAMINATION: XR chest 2V DATE: 04/20/2023 15:04 INDICATION: Shortness of breath. Chest pressure. TECHNIQUE: Frontal and lateral views of the chest were obtained. COMPARISON: Chest 2 views 09/18/2015 FINDINGS: There is no pneumonia, pleural effusion, or pneumothorax. The heart size is normal. Surgica l clips in the right upper quadrant are likely from cholecystectomy. IMPRESSION: 1. No acute cardiopulmonary disease. Reviewed, dictated and finalized at location A. [employer]
[2023-04-20 11:53] VITALS: BP 180/73; PULSE 85; RESP 16; TEMP 36.7; O2SAT 100
[2023-04-20 14:12] VITALS: BP 139/75; PULSE 71; RESP 14; O2SAT 94
[2023-04-20 14:16] VITALS: BP 147/75; PULSE 68; RESP 18; O2SAT 96
[2023-04-20 14:35] LABS: Alveolar/Arterial O2 Gradient 13.7 mmHg; Base Excess ABG -1.1 mEq/l (+/-2.0); Carboxyhemoglobin 0.4 % THb (0-2.0); Fractional Inspired Oxygen 21 %; HCO3 ABG 20.5 mEq/l (22.0-26.0); Methemoglobin ABG 0.1 %THb (0-1.5); Oxygen Content ABG 18.6 %vol (16.0-22.0); Oxygen Saturation ABG 98.3 % (95.0-100.0); Oxyhemoglobin 96.9 % THb (90.0-100.0); PCO2 ABG 26.3 mmHg (35.0-45.0); PO2 ABG 104.5 mmHg (80.0-100.0); PO2 FiO2 Ratio Arterial Blood 4.98 %; Reduced Hemoglobin 2.6 %THb (0-5.0); Total Hemoglobin 13.6 g/dL (12.0-18.0)
[2023-04-20 14:37] LABS: Device ROOM AIR; Modified Allen's Test Pass; Site Drawn RIGHT RADIAL
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
[2023-04-20 15:55] VITALS: BP 148/64; PULSE 69; RESP 12; O2SAT 100
== END 2023-04-20 15:55 | disposition home or self-care (01) ==
PROVIDERS: Emergency Provider Family Medicine; PCP Pathology Hematology
DX: T59.811A Toxic effect of smoke, accidental (unintentional), initial encounter (principal); E11.9 Type 2 diabetes mellitus without complications; E78.5 Hyperlipidemia, unspecified
CPT/HCPCS: 36600; 71046; 82375; 82805; 83050; 99283

== ENCOUNTER 2023-07-14 18:30 | Emergency (ER) | payer MEDICARE, OTHER, SELFPAY ==
--- NOTE | 2023-07-14 18:42 | ED.URI ---
HPI - URI/Sore Throat General Chief Complaint: Upper Respiratory Infection Stated Complaint: Sinus Time Seen by Provider: 07/14/23 18:43 Source: patient, RN notes reviewed and old records reviewed Mode of arrival: ambulatory Limitations: no limitations History of Present Illness HPI Narrative: 67-year-old female presents to the [facility] with complaints sore throat, sinus issues. Patient reports that she was exposed to a family member positive for strep. One be tested for strep Related Data Home Medications Medication Instructions Recorded Confirmed diltiazem HCl 120 mg mg PO 08/25/22 capsule,extended release 24 hr, controlled (DILT-XR) esomeprazole magnesium 40 mg mg 08/25/22 capsule,delayed release clopidogrel 75 mg tablet 75 mg PO DAILY 10/05/22 hydrocortisone 2.5 % topical cream applic topical 07/14/23 Allergies Allergy/AdvReac Type Severity Reaction Status Date / Time amlodipine Allergy Severe Swelling Verified 07/14/23 18:36 of Lip/Tongue/Throat cefdinir Allergy Severe Hives Verified 07/14/23 18:36 metronidazole, micronized Allergy Severe hives Verified 07/14/23 18:36 [id number] Reductase Allergy Severe muscle pain Verified 07/14/23 18:36 Inhibitor Sulfa (Sulfonamide Allergy Severe Hives Verified 07/14/23 18:36 Antibiotics) iodine Allergy Mild HIVES Verified 07/14/23 18:36 metronidazole Allergy Unknown Diarrhea, Verified 07/14/23 18:36 Hives mold Allergy Unknown Difficulty Verified 07/14/23 18:36 Breathing levofloxacin AdvReac Severe TENDON Verified 07/14/23 18:36 PAIN, DAMAGE prednisone AdvReac Mild HX OF Verified 07/14/23 18:36 CENTRAL RETINOPATHY ciprofloxacin AdvReac Unknown TENDON Verified 07/14/23 18:36 DAMAGE, PAIN Contrast Media Allergy Unknown HIVES Uncoded 07/14/23 18:36 Review of Systems Review of Systems: All systems reviewed & are unremarkable except as noted in HPI and below Constitutional: Constitutional: Reports no additional constitutional complaints Eyes: Eyes: Reports no additional eye complaints ENT: Reports as per HPI Cardiovascular: Cardiovascular: Reports no additional cardiovascular complaints, Denies chest pain and Denies dyspnea Respiratory: Respiratory: Reports no additional respiratory complaints, Denies chest congestion, Denies cough and Denies dyspnea Gastrointestinal: Gastrointestinal: Reports no additional gastrointestinal complaints, Denies abdominal pain, Denies nausea and Denies vomiting Musculoskeletal: Musculoskeletal: Reports no additional musculoskeletal complaints Integumentary/Breasts: Skin/Breast: Reports system reviewed and no additional complaints, except as docu Neurologic: Reports system reviewed and no additional complaints, except as documented Psychiatric: Psychiatric: Reports no additional psychiatric complaints Allergic/Immunologic: Allergic/Immunologic: Reports no additional allergic/immunologic complaints PMFSH Past Medical History Medical History Anxiety Diabetes Diverticulitis History of Clostridioides difficile colitis Hyperlipidemia Rectocele Family History Family History Grandparent Cancer Hypertension Heart disease Cerebrovascular accident Mother Hypertension Heart disease Social History Social History Smoking status: Never smoker Alcohol intake: never Lack of Transportation: No Lack of Food: Never True Current Housing: I Have Housing Concerned About Future Housing: No Difficulty Paying Gas/Electric Bills: Decline to Answer Difficulty Paying for Meds: Decline to Answer Currently Unemployed: No Education: Trade/Vocational Certificate Difficulty w/ Childcare or Family Care: No Comments At the time of my signature, I reviewed and agree with the nursing pa
[2023-07-14 18:46] VITALS: BP 157/106; PULSE 60; RESP 16; TEMP 36.6; O2SAT 100
== END 2023-07-14 19:05 | disposition home or self-care (01) ==
PROVIDERS: Emergency Provider Nurse Practitioner; PCP Otolaryngology
DX: J06.9 Acute upper respiratory infection, unspecified (principal); R09.82 Postnasal drip; E11.9 Type 2 diabetes mellitus without complications; E78.5 Hyperlipidemia, unspecified
CPT/HCPCS: 87081; 87880; 99213; G0463